=== PATIENT | female | born 1980 | race Caucasian/White ===

== ENCOUNTER 2024-08-31 16:00 | Outpatient (OUT) | payer OTHER, SELFPAY | END 2024-08-31 16:01 | disposition home or self-care (01) | LOC: SLEEP 09-01 11:55 | PROVIDERS: PCP Internal Medicine; Visit Provider Internal Medicine | DX: G47.33 Obstructive sleep apnea (adult) (pediatric) (principal) | CPT/HCPCS: 95806 ==